=== PATIENT | female | born 1945 | race African-American/Black ===

== ENCOUNTER → 2016-10-25 | Outpatient (CLI) | payer OTHER ==
[~2016-10-25] MED LIST: ALBUTEROL0.09 MG/A2 IH; BACLOFEN10 MG PO; DIAZEPAM5 MG PO; EXCEDRIN1 TAB PO; FIO3 PO; GABAPENTIN100 M2 PO; KADIAN30 MG PO; LEVOFLOXACIN500 M1 PO; MORPHINE SULFAT15 MG PO; NAPROXEN DELAY500 M1 PO; PREDNISONE20 MG PO; PREVACID SOLUTA15 MG PO; TRIAMTERENE/HCT1 CA1 PO; VOLTAREN GEL TOP; XOPENEX HF0.045 MG/1 IH
== END | disposition home or self-care (01) ==
LOC: MA 10-24 13:00 → CT 10-24 13:30 → MA 12:31
PROC: BQ20ZZZ Computerized Tomography (CT Scan) of Right Hip (ICD-10-PCS; principal; 2016-10-25)
PROC: BH02ZZZ Plain Radiography of Bilateral Breasts (ICD-10-PCS; 2016-10-25)
DX: Z12.31 Encounter for screening mammogram for malignant neoplasm of breast (principal); M25.551 Pain in right hip
CPT/HCPCS: G0202